=== PATIENT | female | born 1975 | race Caucasian/White ===

== ENCOUNTER 2016-04-21 05:49 | Day surgery (SDC) | payer OTHER ==
[~2016-04-21] VITALS: Ht 168.9 cm; Wt 116.0 kg
[2016-04-21] VITALS (11 sets, daily range): BP systolic 112–140; BP diastolic 69–86; PULSE 75–109; RESP 10–19; O2SAT 95–98
[~2016-04-21 05:49] MED LIST: CHOL500050 PO; EPIN0.3P2 IJ; HYDR-4003 PO; IMI100 PO; Lactated Ringer's 1,000 ML IV ONE; METH750T3 PO; NAPR500T5 PO; OXYB5TAB10 PO; PREG150C PO; PROC10TA PO; TOPI100T32 PO
[2016-04-21] MEDS ORDERED: fentaNYL-PF 50 mCg/mL 2 mL Inj ONE (05:50)
[2016-04-21] MEDS ORDERED: Neostigmine 1 mg/mL 5 mL Inj ONE (05:50)
[2016-04-21] MEDS ORDERED: Glycopyrrolate 0.2 mg/mL 5 mL Inj ONE (05:50)
[2016-04-21] MEDS ORDERED: Ondansetron 2 mg/mL 2 mL Inj ONE (05:50)
[2016-04-21] MEDS ORDERED: Dexamethasone 4 mg/mL Inj ONE (05:50)
[2016-04-21] MEDS ORDERED: Propofol 10,000 mCg/mL 20 mL Inj ONE (05:50)
[2016-04-21] MEDS ORDERED: Rocuronium 10 mg/mL 5 mL Inj ONE (05:50)
--- NOTE | 2016-04-21 06:56 | PCM.HPANE ---
Patient Data Surgeon Admitting Provider: Attending Provider:Jerry Fabian MD Primary Care Physician:Greg Avila MD Other Provider:PoojaocMagdaleno Anesthesia Reason for Visit Right Thyroid Nodule Ht/WT & BMI Height (Feet): 5 Height (Inches): 6.5 Weight (Kilograms): 115.485 Body Mass Index 40.00 Allergies Coded Allergies: cholera vaccine (Verified Allergy, Severe, HIVES, SCREAMING & CRYING, ) typhoid vaccine (Verified Allergy, Severe, HIVES, SCREAMING & CRYING, ) phenytoin (Verified Adverse Reaction, Severe, LAUGHING OR SLEEPING, 04/21/16 ) Uncoded Allergies: Yogurt (Allergy, Unknown, HIVES,THROAT TINGLING,GI UPSET, 04/16/16) Past Anesthesia History Anesthesia History: Denies:: Anesthesia Reactions, Fam Anesthesia Reaction, Fam Malignant Hypertherm, Malignant Hyperthermia Diabetes History Hx Diabetes?: No MRSA MRSA: No Medications Reported Medications Cholecalciferol (Vitamin D3) (Vitamin D)50,000 Unit Pxcpink70,000 Unit PO WEEKLY 04/16/16 Topiramate (Topamax)100 Mg Qpxors464 Mg PO BID Ref 0 03/05/16 Prochlorperazine Maleate (Prochlorperazine)10 Mg Ubhpjq05 Mg PO Q8 PRN For Nausea/Vomiting Ref 0 03/05/16 Oxybutynin Chloride 5 Mg Tablet5 Mg PO BID Ref 0 03/05/16 Naproxen 500 Mg Tablet.dr500 Mg PO BIDWM Ref 0 03/05/16 Methocarbamol 750 Mg Vljzpd255 Mg PO TID PRN PRN Ref 0 03/05/16 Pregabalin (Lyrica)150 Mg Jknygps038 Mg PO BID 30 Days Ref 0 03/05/16 Sumatriptan (Imitrex)100 Mg Viuhhf623 Mg PO DIRECTED PRN Headache 03/05/16 Hydrocodone-Acetaminophen 5-325 mg 1 Each Tablet1 Tablet PO Q6H PRN For Pain Ref 0 03/05/16 Epinephrine (Epipen 2-Jassi)0.3 Mg/0.3 Ml Auto.injct0.3 Mg IJ DIRECTED PRN For Anaphyllaxis 03/05/16 Discontinued Reported Medications Phentermine 30 Mg Fhqncsa23 Mg PO DAILY 1/4/17 Ofloxacin 5 Ml Drops1-2 Drop AFFECT_EYE QID 04/16/16 Ergocalciferol (Vitamin D2) (Drisdol)50,000 Unit Pfmilgc21,000 Unit PO Q7D 03/05/16 History History of ENT Problems?: Yes HEENT History: Denies:: Cataracts (HX OF LT EYE CONJUNCTIVITIS TX W/ ABX DROPS) Other HEENT Pertinent History: S/P TONSILLECTOMY Hx of Heart Problems?: No Cardiovascular History: Denies:: Hypertension Pacemaker Valvular Heart Disease Hx of Respiratory Problem?: Yes Respiratory History: Positive for:: Asthma Denies:: Use of C-PAP Machine Hx Neurologic Problems?: Yes Neurological History: Positive for:: Headaches Seizures (Epilepsy; last grand mal seizure 20 years ago) Hx of GI Problems?: Yes Gastrointestinal History: Positive for:: Gastroesphageal Reflux Hx of Problems?: Yes Female Hx: Denies:: Currently (S/P BTL) Endometriosis Problems with Breasts? Skin History: Positive for:: History Skin Disorders? (ECZEMA) Denies:: Pressure Ulcers Hx Musculoskeletal Problems?: Yes Musculoskeletal History: Positive for:: Degenerative Joint (CERVICAL SPINAL CORD COMPRESSION) Fibromyalgia Osteoarthritis Rheumatoid Arthritis (ACCORDING TO PT-NOT NOTED IN HISTORY) Hx of Psycho/Social Problems?: No Hx Surgeries?: Yes (TONSILLECTOMY,BTL) Hx Any Other Health Problems?: Yes Other History: Denies:: Cancer Endocrine Disease Hospitalization Thyroid Disease (RT NODULE=CURRENT PROBLEM EUTHYROID,SL NECK PRESSURE & VOICE CHANGE) History Blood Transfusions: Denies:: Blood Transfuse Reaction Blood Transfusions Hx Diabetes: No Hx Alcohol Use: NoHx Substance Use: No Smoking Status: Never Smoker Have You Smoked inLast 12 mo: No Stop/Bang S-Snoring: Do You Snore Loudly: No T-Tired: feel tired, fatigued: Yes O-Obsered: Observed not breath: No P-Blood Pressure: treated: No B- Body Mass Index > 35 kg/m2: Yes A- Age over 50: No N- Neck Large Circumference: Yes G- Gender Male: No ABDON Total Score: 3 Risk Assessment Category Category 1A: Patient has history of documented sleep apnea, and HAS NOT received any narcotic, sedative or anesthesia administration during this stay. Category 1B: Patient has history of documented sleep apnea, and HAS received any narcotic , sedative or anesthesia administration during this stay Category 2: Patient has SUSPECTED Obstructive Sleep Apnea, and HAS received any narcotic , sedative or anesthesia administration during this stay. Category 3: Patient has SUSPECTED Obstructive Sleep Apnea and HAS NOT received narcotic, sedative or anesthesia administration during this stay. Category 4: Outpatient in Procedural Areas with known sleep apnea or who screen positive for High Risk via the STOP/BANG questionnaire. Exam Exam General Appearance: Alert, Oriented X3, Cooperative HEENT/AIRWAY: MP 2, Neck Movement (from), Mouth Opening (wnl) Lungs: Clear to Auscultation, Normal Air Movement Heart: Exam Unremarkable Plan Impression Patient chart reviewed, patient interviewed and anesthestic plan with risks, benefits, and alternatives discussed, and informed consent obtained. NPO Status: 03/09/16 ASA Physical Status: ASA3 Severe Disease Anesthetic Plan: GA Bene/Risks/Altern/Consents: Yes HP Complete Prior to Induction: Yes Wilder Greenberg MD Apr 21, 2016 06:56
[2016-04-21] MEDS ORDERED: Lactated Ringer's 1,000 ML IV SCH (07:56)
[2016-04-21] MEDS ORDERED: Lactated Ringer's 500 ML IV PRN (07:56)
[2016-04-21] MEDS ORDERED: EPHEDrine Sulfate 50 mg/mL Inj IVPUSH PRN (08:00)
[2016-04-21] MEDS ORDERED: Atropine 0.4 mg/mL Inj IVPUSH PRN (08:00)
[2016-04-21] MEDS ORDERED: EPHEDrine Sulfate 50 mg/mL Inj IM PRN (08:00)
[2016-04-21] MEDS ORDERED: Labetalol 5 mg/mL 4 mL Inj IV PRN (08:00)
[2016-04-21] MEDS ORDERED: Bupivacaine-MPF 0.5% W/EPI 30 mL Inj INFILTRATE ONE (08:00)
[2016-04-21] MEDS ORDERED: Dexamethasone 4 mg/mL Inj IVPUSH PRN (08:00)
[2016-04-21] MEDS ORDERED: hydrOXYzine Inj 25 MG/1 mL SDV IM PRN (08:00)
[2016-04-21] MEDS ORDERED: Phenylephrine 10,000 mCg/mL Inj IVPUSH PRN (08:00)
[2016-04-21] MEDS ORDERED: Ondansetron 2 mg/mL 2 mL Inj IVPUSH PRN (08:00)
[2016-04-21] MEDS ORDERED: hydrALAZINE 20 mg/mL Inj IVPUSH PRN (08:00)
[2016-04-21] MEDS ORDERED: Lactated Ringer's 1,000 ML IV ONE (09:20)
[2016-04-21] MEDS: fentaNYL-PF 50 mCg/mL 2 mL Inj IVPUSH PRN ×2 (09:47→10:04)
[2016-04-21] MEDS: HYDROmorphone 1 mg/mL Inj IVPUSH PRN ×2 (09:47→10:03)
--- NOTE | 2016-04-21 10:13 | PCM.ANEP1 ---
Post Anesthesia Phase 1 PACU Phase 1 Assessment Vital Signs Vital Signs Date Time Temp Pulse Resp B/P Pulse Ox O2 Delivery O2 Flow Rate FiO2 04/21/16 10:00 75 13 127/75 96 Nasal Cannula 2 04/21/16 09:55 36.5 82 10 130/73 95 Nasal Cannula 2 04/21/16 09:50 95 13 132/79 96 Room Air 04/21/16 09:45 96 15 140/85 97 Room Air 04/21/16 09:40 107 15 135/86 97 Room Air 04/21/16 09:36 36.3 109 14 136/84 96 Room Air 04/21/16 07:08 36.7 89 16 112/72 98 Room Air Anesthetic Administered: GA Level of Alertness: Awake, talking LANDERS's with Equal Strength: Yes Pain: No Nausea or Vomiting: No Oxygen Delivery: Room Air Lungs: Normal Air Movement Wilder Greenberg MD Apr 21, 2016 10:13
[2016-04-21] MEDS: HYDROcodone-APAP 5-325 mg Tablet PO PRN ×2 (10:43→11:20)
--- NOTE | 2016-04-21 12:52 | PCM.ANEP2 ---
Post Anesthesia Evaluation ASA/CMS Post Anesthesia VS in Patient's Normal Range?: Yes Resp Stable; Airway Patent?: Yes CV Function & Hydration Stable: Yes Mental Status Recovered?: Yes Pain control Satisfactory?: Yes N/V Control Satisfactory?: Yes Wilder Greenberg MD Apr 21, 2016 12:51
--- NOTE | 2016-04-21 20:47 | OP ---
[address] [address] OPERATIVE REPORT PATIENT: QAMAR TOLENTINO : 1975 MR#: [id number] ADMIT: 04/21/2016 JOB ID: [id number] DATE OF SURGERY: 04/21/2016 PREOPERATIVE DIAGNOSIS(ES): Right thyroid nodule with indeterminate cytology. POSTOPERATIVE DIAGNOSIS(ES): Right thyroid nodule with indeterminate cytology. PROCEDURE: Right thyroid lobectomy. SURGEON: Jerry Fabian MD. DIGITAL ASSET SPECIALIST: Gilbert Rebolledo MD and Dilcia Chen PA-C. INDICATIONS: The patient is a 40-year-old female who was found incidentally to have a right thyroid nodule that was approximately 3 cm. A fine needle aspirate cytology was done and had indeterminate cytologies and after discussing options with the patient, it was elected to proceed with a right thyroid lobectomy. There is no adenopathy seen on any of her imaging nor could be palpated on her physical examination. After discussing options, she elected to proceed. Her BMI is greater than 40. FINDINGS: The right thyroid nodule was in the mid portion of the lobe. It did not grossly penetrate the anterior or posterior surfaces. There was no invasion of strap muscles. There was no visible or palpable adjacent lymphadenopathy. The left thyroid lobe was not exposed. Parathyroid glands not identified because of obesity. DESCRIPTION OF PROCEDURE: At the beginning and end of the operation, the SCOAP checklist was completed. A general endotracheal anesthetic was induced. Using ChloraPrep, she was prepped and draped in usual fashion. The patient had a preoperative BMI of greater than 40 and tape was used to help put stretch on soft tissues of her neck and her neck was extended as much as possible. A collar incision was designed and infiltrated with 0.5% bupivacaine with epinephrine. After making the skin incision, cautery was used to divide subcutaneous tissues and platysma. The strap muscles were identified, in midline and then the right thyroid lobe was exposed. The plane between the sternohyoid and sternal thyroid muscles was bluntly developed to allow greater relaxation of the strap muscles. The middle thyroid vein was identified, exposed and divided with the LigaSure. The isthmus was then identified and exposed and using triple applications of the thyroid parenchyma, it was divided. The superior pole was then mobilized 1st taking individual vascular pedicles as they entered the thyroid parenchyma. I then mobilized the inferior pole and in both cases worked towards the hilum. I was able to easily mobilize the lobe medially and with careful dissection, exposed hilar vessels and they were divided with the bipolar cautery. As stated above, she had a BMI in excess of 40. She had a lot of fat in her neck. I could palpate a banjo string structure in the location where the recurrent laryngeal nerve should be located, and it went up towards the larynx, but I actually did not visualize it. The lobe mobilized very readily medially but in order to protect the nerve there was a small amount of thyroid left in place and divided with the bipolar cautery or with the LigaSure. After the lobe was completely removed, sutures were placed for margin orientation and it was put into formalin for permanent pathology. There was a small amount of bleeding from the residual thyroid tissue but no other bleeding. The strap muscles were then closed with running 3-0 Vicryl. The platysma with running 3-0 Vicryl. Skin with subcuticular 4-0 Vicryl and Dermabond. Estimated blood loss 10 cc. No apparent complications. The final sponge, needle and instrument counts were announced as correct, and the patient was returned to recovery in stable condition. Critical assistance provided by Gilbert Rebolledo MD. JUDI
--- NOTE | 2016-04-23 16:27 | PATH ---
SURGICAL PATHOLOGY Attending Physician:Alejo Hameed CASE STATUS: Signed Out PATIENT NAME: QAMAR TOLENTINO PID: [id number] : 1975 DATE COLLECTED:04/21/2016 17:14 SPECIMEN: Thyroid, Lobectomy CLINICAL HISTORY: A: RIGHT THYROID, SHORT STITCH SUPERIOR, LONG STITCH MEDIAL RIGHT THYROID NODULE FINAL DIAGNOSIS: 1.RIGHT THYROID LOBECTOMY: ADENOMATOUS (HYPERPLASTIC) NODULE. NO EVIDENCE OF MALIGNANCY. ICD10 CODE E04.1 GROSS DESCRIPTION: The specimen is received in formalin, labeled with the patient's name, sublabeled as right thyroid; short stitch superior, long stitch medial and consists of a thyroid gland right lobe (12.6 g, 1.2 cm AP, 4.7 cm SI, 2.5 cm ML) oriented with 2 black sutures (short-superior, long-medial). The capsule is red-brown smooth and shiny. The parenchyma is red-brown and contains a solid rubbery darker red-brown well-circumscribed nodule (2.3 x 1.8 x 1.5 cm) in the upper half. The nodule is 0.5 cm from the superior and 2.2 cm from the inferior poles. No other nodules, masses or lesions are identified. Ink code: purple-anterior; yellow-posterior; green-medial. Section code: (A) superior pole, perpendicularly sectioned, entirely submitted; (B-G) right lobe, serially sectioned and submitted SI, investment representative; (H) inferior pole, perpendicularly sectioned, entirely submitted. 04/22/16 JM MICRO DESCRIPTION: See diagnosis. ICD-9 CODES: CPT CODES: 1: 09798 Electronically Signed Out Shameka Knight MD [facility] [address], [place] [address] Technical component performed at [facility], [address] [place] [address] Ave[address], [place], [address]
== END 2016-04-21 23:59 | disposition home or self-care (01) ==
LOC: SAS 05:49
PROVIDERS: ATTEND Surgery
DX: D34 Benign neoplasm of thyroid gland (principal); J45.909 Unspecified asthma, uncomplicated; G40.909 Epilepsy, unspecified, not intractable, without status epilepticus; M79.7 Fibromyalgia; E66.9 Obesity, unspecified; G43.909 Migraine, unspecified, not intractable, without status migrainosus; Z68.41 Body mass index [BMI] 40.0-44.9, adult
CPT/HCPCS: 60210; J1100; J1170; J2250; J2405; J2710; J7120

== ENCOUNTER 2016-10-10 08:52 | Inpatient (IN) | payer OTHER ==
--- NOTE | 2016-10-09 14:35 | PCM.HPANE ---
Patient Data Surgeon Admitting Provider: Attending Provider:Tiffanie Wu MD Primary Care Physician:Greg Avila MD Other Provider:Jaclyn Hendricksingham Anesthesia Reason for Visit Benign Neoplasm, Excessive Bleeding In The [place] Ht/WT & BMI Height (Feet): 5 Height (Inches): 6.5 Weight (Kilograms): 112.03 Body Mass Index 39.00 Allergies Coded Allergies: cholera vaccine (Verified Allergy, Severe, HIVES, SCREAMING & CRYING, ) typhoid vaccine (Verified Allergy, Severe, HIVES, SCREAMING & CRYING, ) phenytoin (Verified Adverse Reaction, Severe, LAUGHING OR SLEEPING, 04/21/16 ) Uncoded Allergies: Yogurt (Allergy, Unknown, HIVES,THROAT TINGLING,GI UPSET, 04/16/16) Past Anesthesia History Anesthesia History: Denies:: Abnormal Airway, Anesthesia Reactions, Difficult Intubation, Fam Anesthesia Reaction, Fam Malignant Hypertherm, Malignant Hyperthermia Diabetes History Hx Diabetes?: No MRSA MRSA: No Medications Hypertension Medication: No Home Meds Incl Beta Fitz: No Reported Medications Cholecalciferol (Vitamin D3) (Vitamin D3)50,000 Unit Fytvdbe83,000 Unit PO WEEKLY 10/07/16 Topiramate (Topamax)200 Mg Pndmdm147 Mg PO BID Ref 0 10/07/16 Prochlorperazine Maleate (Prochlorperazine)10 Mg Spxhlk21 Mg PO Q8 PRN For Nausea/Vomiting Ref 0 10/07/16 Pramipexole Dihydrochloride 0.125 Mg Tablet0.125 Mg PO HS 10/07/16 Phentermine 30 Mg Icmrvqr38 Mg PO DAILY 10/07/16 Oxybutynin Chloride 5 Mg Tablet5 Mg PO BID Ref 0 10/07/16 Naproxen 500 Mg Vzc977 Mg PO BID PRN For Pain Ref 0 10/07/16 Methocarbamol 750 Mg Spuiji565 Mg PO TID PRN For Spasm Ref 0 10/07/16 Magnesium 30 Mg Mxbovz87 Mg PO DAILY 10/07/16 Pregabalin (Lyrica)150 Mg Ttvjsnt887 Mg PO TID 30 Days Ref 0 10/07/16 Sumatriptan (Imitrex)100 Mg Jnyhpf152 Mg PO Q2H PRN migraines NTE 200mg/24hr 10/07/16 Hydrocodone-Acetaminophen 5-325 mg 1 Each Tablet1 Tablet PO Q6H PRN For Pain Ref 0 10/07/16 Epinephrine (Epipen 2-Jassi)0.3 Mg/0.3 Ml Auto.injct0.3 Mg IJ PRN For Anaphyllaxis 10/07/16 Discontinued Reported Medications Cholecalciferol (Vitamin D3) (Vitamin D)50,000 Unit Oxuohra91,000 Unit PO WEEKLY 04/16/16 Topiramate (Topamax)100 Mg Oenpna693 Mg PO BID Ref 0 03/05/16 Prochlorperazine Maleate (Prochlorperazine)10 Mg Sghmaf33 Mg PO Q8 PRN For Nausea/Vomiting Ref 0 03/05/16 Oxybutynin Chloride 5 Mg Tablet5 Mg PO BID Ref 0 03/05/16 Naproxen 500 Mg Tablet.dr500 Mg PO BIDWM Ref 0 03/05/16 Methocarbamol 750 Mg Wdqwrt485 Mg PO TID PRN PRN Ref 0 03/05/16 Pregabalin (Lyrica)150 Mg Zivjklt298 Mg PO BID 30 Days Ref 0 03/05/16 Sumatriptan (Imitrex)100 Mg Dlcfmd774 Mg PO DIRECTED PRN Headache 03/05/16 Hydrocodone-Acetaminophen 5-325 mg 1 Each Tablet1 Tablet PO Q6H PRN For Pain Ref 0 03/05/16 Epinephrine (Epipen 2-Jassi)0.3 Mg/0.3 Ml Auto.injct0.3 Mg IJ DIRECTED PRN For Anaphyllaxis 03/05/16 History History of ENT Problems?: Yes HEENT History: Denies:: Abnormal Airway Cataracts Difficult Intubation Dysphagia Glaucoma Hearing Problem Sinus Problem TMJ Denture Type: None Teeth Condition: Within Normal Limits Hx of Heart Problems?: No Cardiovascular History: Positive for:: Irregular Heartbeat (only during ) Denies:: AICD Edema Heart Murmur Hypertension Pacemaker Peripheral Vascular Valvular Heart Disease Hx of Respiratory Problem?: No Respiratory History: Denies:: Asthma (as child, exercise induced- not current ) COPD Emphysema Oxygen Administration Pneumonia Tuberculosis Use of C-PAP Machine (sleep study done, no CPAP recommended) Hx Neurologic Problems?: Yes Neurological History: Positive for:: Headaches (every few weeks) Seizures (Epilepsy; last grand mal seizure 20 years ago- last aura 3 years ago ) Denies:: CVA Dizziness Multiple Sclerosis Parkinson's Disease Other Neurological Pertinent: restless leg syndromes Hx of GI Problems?: Yes Hx of Problems?: No Genitourinary History: Denies:: Urinary Tract Infection Female Hx: Denies:: Currently (S/P TUBAL) Endometriosis Problems with Breasts? Skin History: Denies:: History Skin Disorders? Pressure Ulcers Hx Musculoskeletal Problems?: Yes Musculoskeletal History: Positive for:: Degenerative Joint (CERVICAL SPINAL CORD COMPRESSION) Fibromyalgia Osteoarthritis (knees ) Denies:: Joint Replacement Myasthenia Gravis Systemic Lupus Hx of Psycho/Social Problems?: No Hx Surgeries?: Yes (TONSILLECTOMY,BTL, thyroid) Hx Any Other Health Problems?: Yes Other History: Positive for:: Thyroid Disease (right thyroid lobectomy 04/2016) Denies:: Cancer Endocrine Disease Hospitalization History Blood Transfusions: Positive for:: Accept Blood Products? Denies:: Blood Transfuse Reaction Blood Transfusions Hx Diabetes: No Hx Alcohol Use: NoHx Substance Use: No Smoking Status: Never Smoker Have You Smoked inLast 12 mo: No Stop/Bang S-Snoring: Do You Snore Loudly: No T-Tired: feel tired, fatigued: Yes O-Obsered: Observed not breath: No P-Blood Pressure: treated: No B- Body Mass Index > 35 kg/m2: Yes A- Age over 50: No N- Neck Large Circumference: No G- Gender Male: No ABDON Total Score: 2 Risk Assessment Category Category 1A: Patient has history of documented sleep apnea, and HAS NOT received any narcotic, sedative or anesthesia administration during this stay. Category 1B: Patient has history of documented sleep apnea, and HAS received any narcotic , sedative or anesthesia administration during this stay Category 2: Patient has SUSPECTED Obstructive Sleep Apnea, and HAS received any narcotic , sedative or anesthesia administration during this stay. Category 3: Patient has SUSPECTED Obstructive Sleep Apnea and HAS NOT received narcotic, sedative or anesthesia administration during this stay. Category 4: Outpatient in Procedural Areas with known sleep apnea or who screen positive for High Risk via the STOP/BANG questionnaire. Exam Exam General Appearance: Alert, Oriented X3, Cooperative HEENT/AIRWAY: MP 2, Neck Movement (thick, from), Mouth Opening (wnl) Lungs: Clear to Auscultation Heart: Exam Unremarkable Plan Impression Patient chart reviewed, patient interviewed and anesthestic plan with risks, benefits, and alternatives discussed, and informed consent obtained. ASA Physical Status: ASA2 Mod Systemic Disease Anesthetic Plan: GA Bene/Risks/Altern/Consents: Yes HP Complete Prior to Induction: Yes Wilder Greenberg MD Oct 09, 2016 14:35
[2016-10-10] VITALS (16 sets, daily range): BP systolic 106–144; BP diastolic 65–92; PULSE 52–85; RESP 9–27; O2SAT 97–100
[~2016-10-10] VITALS: Ht 170.2 cm; Wt 116.0 kg
[2016-10-10] MEDS: CeFAZolin Inj 2 GM in IV Premix 1 EACH IV SCH ×2 (06:00→11:47)
[~2016-10-10 08:52] MED LIST changes: +LORazepam 1 mg Tablet PO PRN; -Lactated Ringer's 1,000 ML IV ONE; +Lactated Ringer's 1,000 ML IV SCH; +MAGN30TA3 PO; -NAPR500T5 PO; +NPR500T PO; +PHEN-499 PO; +PRAM0.128 PO; -TOPI100T32 PO; +TOPI200T17 PO; +fentaNYL-PF 50 mCg/mL 2 mL Inj IVPUSH PRN
[2016-10-10] MEDS ORDERED: CeFAZolin 2 Gm/50 mL D5W Duplex Bag IV ONE (09:12)
[2016-10-10 09:57] LABS: Mean Corpuscular Hemoglobin 28.5 pg (27.0-35.0); Mean Corpuscular Volume 87.9 fL (81-100)
[2016-10-10] MEDS ORDERED: Lactated Ringer's 1,000 ML IV ONE ×3 (11:29→17:17)
[2016-10-10] MEDS ORDERED: Lactated Ringer's 500 ML IV PRN (11:50)
[2016-10-10] MEDS ORDERED: hydrOXYzine Inj 50 MG/1 mL SDV IM PRN (11:50)
[2016-10-10] MEDS ORDERED: Atropine 0.4 mg/mL Inj IVPUSH PRN (11:50)
[2016-10-10] MEDS ORDERED: Dexamethasone 4 mg/mL Inj IVPUSH PRN (11:50)
[2016-10-10] MEDS ORDERED: EPHEDrine Sulfate 50 mg/mL Inj IM PRN (11:50)
[2016-10-10] MEDS ORDERED: Phenylephrine 10,000 mCg/mL Inj IVPUSH PRN (11:50)
[2016-10-10] MEDS ORDERED: Ondansetron 2 mg/mL 2 mL Inj IVPUSH PRN ×2 (11:50→15:00)
[2016-10-10] MEDS ORDERED: EPHEDrine Sulfate 50 mg/mL Inj IVPUSH PRN (11:50)
[2016-10-10] MEDS ORDERED: Labetalol 5 mg/mL 4 mL Inj IV PRN (11:50)
[2016-10-10] MEDS ORDERED: hydrALAZINE 20 mg/mL Inj IVPUSH PRN (11:50)
[2016-10-10] MEDS ORDERED: Bupivacaine-MPF 0.5% W/EPI 30 mL Inj INJ ONE (11:53)
[2016-10-10] MEDS ORDERED: Acetaminophen IV 1,000 MG in IV Premix 1 EACH IV ONE (12:00)
[2016-10-10] MEDS ORDERED: Tranexamic Acid Inj 1,000 MG in 0.9% Sodium Chloride 100 ML IV ONE (13:15)
[2016-10-10] MEDS ORDERED: Tranexamic Acid 100 mg/mL 10 mL Inj ONE (13:20)
[2016-10-10] MEDS: Lactated Ringer's 1,000 ML IV SCH ×4 (14:50→22:57)
[2016-10-10] MEDS ORDERED: Senna-Docusate 8.6-50 mg Tablet PO PRN (15:00)
[2016-10-10] MEDS ORDERED: Acetaminophen IV 1,000 MG in IV Premix 1 EACH IV PRN (15:00)
[2016-10-10] MEDS ORDERED: Alum-Mag Hydrox-Simeth 30 mL Suspension PO PRN (15:00)
[2016-10-10] MEDS ORDERED: MetoCLOpramide 5 mg/mL 2 mL Inj IVPUSH PRN (15:00)
[2016-10-10] MEDS ORDERED: HYDROmorphone PCA 0.2 mg/mL 30 mL Inj IV PRN (15:05)
[2016-10-10] MEDS ORDERED: HYDROmorphone 0.5 mg/0.5 mL iSecure Syringe IVPUSH PRN (15:05)
--- NOTE | 2016-10-10 15:33 | PCM.ANEP1 ---
Post Anesthesia PACU Phase 1 Assessment Vital Signs Vital Signs Date Time Temp Pulse Resp B/P Pulse Ox O2 Delivery O2 Flow Rate FiO2 10/10/16 15:30 75 15 139/87 100 Simple Mask 8 10/10/16 15:25 76 21 134/85 100 Simple Mask 8 10/10/16 15:21 36.0 76 23 133/84 100 Simple Mask 8 10/10/16 09:21 36.4 85 16 116/76 99 Room Air Anesthetic Administered: GA Level of Alertness: Sleeping, hard to arouse LANDERS's with Equal Strength: Yes Pain: Yes Nausea or Vomiting: No CV Function & Hydration Stable: No Airway Device: Oxygen Delivery: Simple Mask Lungs: Normal Air Movement PACU Phase 2 Assessment Complications: No Follow up Care: No Patient Instructions Provided: N/A Wilder Greenberg MD Oct 10, 2016 15:33
[2016-10-10] MEDS: fentaNYL-PF 50 mCg/mL 2 mL Inj IVPUSH PRN ×4 (15:50→16:32)
[2016-10-10] MEDS: HYDROmorphone 1 mg/mL Inj IVPUSH PRN ×2 (15:50→17:08)
--- NOTE | 2016-10-10 16:11 | OP ---
[address] [address] OPERATIVE REPORT PATIENT: QAMAR TOLENTINO : 1975 MR#: [id number] ADMIT: 10/10/2016 JOB ID: [id number] DATE OF SURGERY: 10/10/2016 PREOPERATIVE DIAGNOSIS(ES): Dysmenorrhea and dermoid cyst. POSTOPERATIVE DIAGNOSIS(ES): Dysmenorrhea and dermoid cyst. PROCEDURE PERFORMED: Total laparoscopic hysterectomy with bilateral salpingectomy and left oophorectomy with conversion to laparotomy for completion of an abdominal hysterectomy, cystoscopy. SURGEON: Tiffanie Wu M.D. AOC DIRECTOR INTELLIGENCE OFFICER: Idalmis Morales M.D. and Kina Allen M.D., who were necessary for safe completion and assistance in a difficult case. ANESTHESIA: General endotracheal anesthesia. ESTIMATED BLOOD LOSS: 1100 cc. FLUID REPLACEMENT: 3000 cc of crystalloid and she was given tranexamic acid intraoperatively. FINDINGS: At 10 week size uterus. Bilateral enlarged ovaries with a left dermoid cyst. Normal-appearing fallopian tubes with Filshie clips present. Large amount of bleeding and oozing mostly coming from the anterior vaginal cuff and bladder, but diffusely oozy throughout the case. COMPLICATIONS: Heavy bleeding precluding completion of a total laparoscopic hysterectomy and requiring conversion to laparotomy for safe completion. INDICATIONS: This is a 40-year-old female who presented to my clinic for an evaluation of a dermoid cyst and dysmenorrhea. She had initially elected to continue conservative management through a repeat transvaginal ultrasound. She finally decided she was ready to be done with this and wanted definitive surgical management. Risks of cyst removal versus oophorectomy were discussed and she also wanted treatment for her heavy vaginal bleeding so medical management versus surgical management was reviewed and she elected to proceed with a total laparoscopic hysterectomy and bilateral salpingectomy and left oophorectomy. Risks, benefits and alternatives were discussed with her prior to the procedure. She elected to proceed. DESCRIPTION OF PROCEDURE: The patient was taken to the operating room. She was placed in the dorsal lithotomy position. Prepped and draped in the usual sterile fashion for the procedure. A bivalve speculum was placed and the uterus was sounded to 10 cm and a medium-sized V Care uterine manipulator was placed without difficulty. A Simon catheter was also placed. Attention was then turned laparoscopically. After injection with local anesthetic, a 5 mm infraumbilical port was placed in the site of her previous infraumbilical port placement for her tubal ligation. A Veress needle was then inserted through the midline of the umbilicus and a saline drop test noted appropriate placement. The abdomen was then insufflated with appropriately rising CO2 pressures. The laparoscope was then placed under direct visualization and an intra-abdominal placement was confirmed. Next, attention was turned to the right lower quadrant where a second 5 mm port was placed after injection with local anesthetic. Under direct visualization, the same process was completed on the left under direct visualization. The patient was placed in Trendelenburg position and the uterus was examined. It was noted to be 10 week size with bilateral normal-appearing fallopian tubes with Filshie clips present and enlarged ovaries bilaterally with the left side having the 2.5 cm dermoid cyst. The left ovary and fallopian tube were then elevated away from the sidewall. The ureter was identified and noted to be well away from the area of operation and the left IP ligament was then cauterized and transected. This was carried along the broad ligament back to the uterine cornua transecting the ovary and fallopian tube off of the broad ligament. The round ligament was then grasped and cauterized and then transected. The anterior and posterior sheaths of the broad ligament were and the anterior sheath of the broad ligament was brought down to the isthmus. A bladder flap was then created by bringing the cautery across the top of the anterior leaf of the bladder and the uterine vessels were skeletonized and then cauterized. With the creation of the bladder flap, she was noted to have a moderate amount of bleeding coming from the anterior bladder wall as well as back bleeding from the ovary and transected broad ligament which was serially cauterized. Attention was then turned to the right side where the right fallopian tube was elevated and transected along the mesosalpinx to the level of the uterine cornua. The fallopian tube was cauterized along the mesosalpinx up to the level of the cornua and the utero-ovarian ligament was then transected followed by the round ligament. The anterior and posterior leaves of the broad ligament were then using the cautery. Anterior and posterior sheaths were brought down to the level of the isthmus and the level of the uterine arteries. These were then cauterized. However, at this point in time, she was noted continuing to have a moderate amount of bleeding coming from the left side of the surgery site. Despite 45 minutes of suction, irrigation and cauterization, we were not able to get control of the bleeding or even definitively see where it was coming from. She seemed to be oozing from her entire surgical line and also had some bleeding along the right side as well. To aid in visualization of the bleeding, a fourth port was placed in the right upper quadrant to aid with suction irrigation, and despite this, she continued to have heavy bleeding that appeared to be coming from the lower uterine segment, anterior wall of the bladder and back bleeding from the uterus. We continued to work towards hemostasis but when she had lost approximately a liter of blood and we were continuing to have bleeding, a decision was made to convert to a laparotomy to better control her bleeding and for the patient's safety. An intraoperative hemoglobin was collected which was 10.2, down from 11.8, pre surgery and our anesthesiologist gave her tranexamic acid intraoperatively to also help with hemostasis. When the decision was made to convert to a laparotomy, all of the laparoscopic ports were removed. A Pfannenstiel incision was then made over along the lower abdomen. This was brought down sharply to the level of the rectus fascia and cautery was used to achieve hemostasis. The fascia was then incised in the midline. It was sharply dissected off of the rectus muscle. Blunt and sharp dissection was further used as well to help remove the fascia from the underlying rectus muscle. The peritoneum was then entered bluntly and this entrance was extended bluntly bilaterally. A Bookwalter retractor was then placed and the bowel was packed away from the uterus. Two Star clamps were used to grasp the bilateral cornua and elevate the uterus up from the abdomen. The VCare uterine manipulator was also removed. Visualization then revealed that she continued to have bleeding from her anterior bladder wall. Two Z clamps were then placed along the cardinal ligament bilaterally. These were then incised with scissors and suture ligated with a Adele stitch of 0-Vicryl. This process was repeated twice down the cardinal ligament until the vaginal cuff was then reached. Two moderately curved hysterectomy clamps were then placed below the cervix across the vaginal cuff meeting in the middle, and using Aydee scissors, the uterus, cervix and left ovary and fallopian tube were then excised from the vaginal cuff and removed from the abdomen. The vaginal cuff was then closed with 0-Vicryl with three vxvxfl-ls-gvvej stitches in the midline and two Adele stitches at each corner. These were tagged to allow for elevation of the vaginal cuff. Examination of the vaginal cuff and vesicouterine peritoneum was examined and there was noted to be an area of active bleeding coming from the bladder wall. Cauterization was not successful in achieving hemostasis so a stitch of 0 Vicryl was placed in order to achieve hemostasis. There was also noted to be some bleeding from the right corner of the vaginal cuff and an extra bzdycd-li-crwos stitch was placed here as well. The pelvis was copiously irrigated and packed with sponges. These were removed and she was noted to have a minimal amount of oozing and so FloSeal was then placed on top of the vaginal cuff and good hemostasis was noted following this. When she was noted to be hemodynamically stable and hemostasis was assured throughout the surgical site lines, the lap sponges that had been placed were then removed from the abdomen and the retractors were removed. The fascia was then closed with two running nonlocking stitches of 0-Vicryl starting in each corner and meeting in the midline. The subcutaneous tissue was reapproximated using plain gut suture and the skin was closed with 4-0 Vicryl. All sponge, needle, instrument counts were correct at the completion the procedure. She tolerated this procedure well. Recovered in PACU. Dr. Morales and Dr. Allen were necessary for safe completion of this case. Dr. Allen was called mid portion of the procedure due to the volume of intraoperative bleeding that she was experiencing. [facility]
--- NOTE | 2016-10-10 17:30 | NUR ---
POstop Pt comes from PACu A&OX4. IV X 2 in each hand. 2L NC supplemental oxygen. Simon catheter patent and draining to gravity pale yellow urine. 4 lap sites with SS and bandaids. Midline low abd inc covered with ABD and hypafix tape. Care continues. Pain 6/10. Care continues
[2016-10-10] MEDS ORDERED: Ondansetron 2 mg/mL 2 mL Inj ONE (18:03)
[2016-10-10] MEDS ORDERED: Neostigmine 1 mg/mL 10 mL Inj ONE (18:03)
[2016-10-10] MEDS ORDERED: fentaNYL-PF 50 mCg/mL 2 mL Inj ONE (18:03)
[2016-10-10] MEDS ORDERED: Glycopyrrolate 0.2 MG/ML 1mL Inj ONE (18:03)
[2016-10-10] MEDS ORDERED: Propofol 10,000 mCg/mL 20 mL Inj ONE (18:03)
[2016-10-10] MEDS ORDERED: HYDROmorphone 1 mg/mL Inj ONE (18:03)
[2016-10-10] MEDS ORDERED: Dexamethasone 4 mg/mL Inj ONE (18:03)
[2016-10-10] MEDS ORDERED: Rocuronium 10 mg/mL 5 mL Inj ONE (18:03)
[2016-10-10 19:49] LABS: Mean Corpuscular Hemoglobin 28.8 pg (27.0-35.0); Mean Corpuscular Volume 88.6 fL (81-100)
[2016-10-10] MEDS: Senna-Docusate 8.6-50 mg Tablet PO SCH (20:54)
[2016-10-10] MEDS: Ondansetron 2 mg/mL 2 mL Inj IVPUSH PRN (21:05)
[2016-10-11 00:45] VITALS: RESP 16; O2SAT 98
[2016-10-11] MEDS: Ondansetron 2 mg/mL 2 mL Inj IVPUSH PRN ×2 (01:33→03:28)
--- NOTE | 2016-10-11 01:43 | NUR ---
Pain/Nausea/ mentation C/O pain on KNITTED [employer] SHAPER dilaudid 0.2X10X1.2. IV Tylenol patient states pain continues but not getting worse. C/O nausea given 4mg Zofran nausea improved but required additional dose within 4 hours. Patient speech delayed and slurred, drifts off mid sentence. Expression exhaustion and desire to "get a good nights sleep." Patient education on pain management, proper use of KNITTED GOODS SHAPER. Bed in low position, call llight within reach, intentional rounding.
[2016-10-11] MEDS: Lactated Ringer's 1,000 ML IV SCH ×3 (03:20→22:57)
[2016-10-11 05:30] VITALS: BP 108/72; PULSE 95; RESP 16; O2SAT 95
[2016-10-11 06:43] LABS: BASOPHILS % (AUTO) 0.1 % (0-3); EOSINOPHILS % (AUTO) 0.1 % (0-5); Mean Corpuscular Hemoglobin 28.8 pg (27.0-35.0); Mean Corpuscular Volume 89.5 fL (81-100); NEUTROPHILS % (AUTO) 82.5 % (40-74); Platelet Count 174 bil/L (150-400)
[2016-10-11 08:00] VITALS: RESP 16; O2SAT 100
[2016-10-11] MEDS: Tolterodine ER 2 mg ER24 Capsule PO SCH (08:31)
[2016-10-11] MEDS: Senna-Docusate 8.6-50 mg Tablet PO SCH ×2 (08:32→21:00)
[2016-10-11] MEDS: oxyCODONE-Acetamin 5-325 mg Tablet PO PRN ×4 (08:33→20:59)
[2016-10-11 13:33] VITALS: BP 113/76; PULSE 100; RESP 18; O2SAT 100
--- NOTE | 2016-10-11 13:44 | PROG NOTE ---
[address] [address] PROGRESS NOTE PATIENT: QAMAR TOLENTINO : 1975 MR#: [id number] ADMIT: 10/10/2016 JOB ID: [id number] DATE: 10/11/2016 SUBJECTIVE: She is doing okay this morning. She is feeling fatigued and tired. She has not yet been out of bed or ambulated. She is complaining of back pain as well as lower abdominal pain and cramping. She is tolerating a little bit of a regular diet. She is not passing any flatus yet. She was on a Dilaudid MARBLE SUPERVISOR, but this was discontinued due to nausea and she is now on Percocet and IV Tylenol, which is moderately helpful in improving her pain. She denies any fevers, chills, chest pain, or shortness of breath. OBJECTIVE: Her temperature is 36.4, pulse is 95. Her respiratory rate is 16. Her blood pressure is 108/72 and she is satting 95% on room air. In general, she is awake, alert, oriented, in no acute distress. Her heart shows regular rate and rhythm. Her lungs are clear to auscultation bilaterally. Her abdomen is soft. It is appropriately tender. Minimal distention. She has normoactive bowel sounds and her incisions are clean, dry, intact, with a little bit of ecchymoses surrounding the left cornua of her Pfannenstiel incision. Her extremities show no tenderness or edema. She does have SCDs in place. LAB DATA: This morning, her white count is 12.2, up from 5.0 preoperatively. Her hemoglobin is 9.3, down from 11.8 preoperatively and her platelets are 174. ASSESSMENT: This is a 40-year-old female, who is postop day one following attempted total laparoscopic hysterectomy with bilateral salpingectomy and left oophorectomy for a dermoid cyst and dysmenorrhea with conversion to laparotomy with completion of an abdominal hysterectomy due to heavy intraoperative bleeding with approximate EBL of 1100 cc. PLAN: At this point in time, she is doing well. Her hemoglobin is stable. She dropped from 11.8 preoperatively down to 9.3 on postoperative day number one and is overall very reassuring in terms of the amount of blood loss that occurred. She has not yet been out of bed and she continues to have a Simon catheter in place. She is complaining of pain and nausea related to the MARBLE SUPERVISOR. The MARBLE SUPERVISOR was discontinued this morning. Will transition her to oral pain medications. She will be saline locked when tolerating more of a regular diet. Her Simon catheter will be removed and we will ambulate in the room today. Her urine output has been adequate overnight. She has had 500 cc out in her Simon catheter this morning already. We will continue routine postoperative care. Anticipate discharge home tomorrow or Thursday.
--- NOTE | 2016-10-11 17:13 | NUR ---
Pain / AMbulation / Simon Simon catheter removed this AM. Pt spontaneously voiding small amounts pale yellow urine. Pain seems controlled with 2 tabs Percocet Q4-5hrs. Pt up to chair and ambulating with slow cautious steady gait to bathroom. Care continues
[2016-10-11 20:41] VITALS: BP 129/76; PULSE 114; RESP 20; O2SAT 99
[2016-10-12] MEDS: oxyCODONE-Acetamin 5-325 mg Tablet PO PRN ×6 (01:37→22:15)
[2016-10-12 05:12] VITALS: BP 132/80; PULSE 111; RESP 17; O2SAT 100
--- NOTE | 2016-10-12 06:55 | NUR ---
Pain 2 Percocet PO effective every 4 hours. Pt. rates pain 8/10 at times. Will continue to monitor.
[2016-10-12] MEDS: Lactated Ringer's 1,000 ML IV SCH ×3 (06:57→22:57)
[2016-10-12 08:25] VITALS: BP 112/79; PULSE 113; RESP 18; O2SAT 98
[2016-10-12] MEDS ORDERED: Ergocalciferol (Vit D2) 50,000 Unit Capsule PO SCH (08:30)
[2016-10-12] MEDS: Tolterodine ER 2 mg ER24 Capsule PO SCH (08:49)
[2016-10-12] MEDS: Senna-Docusate 8.6-50 mg Tablet PO SCH ×2 (08:50→21:22)
--- NOTE | 2016-10-12 09:32 | PCM.DIGYN ---
Surgical Discharge Instruction Dates of Hospitalization Date of Hospital Admission Oct 10, 2016 at 18:02 Providers Admitting Physician: Tiffanie Wu MD Primary Care Physician: Greg Avila MD Attending Physician: Tiffanie Wu MD Diet Discharge Diet: No restrictions Activity Discharge Activity-General: Try not to overdue, Be up and about, Balance rest and activity, Activity as pain allows, Activity as energy allows, No lifting > 10 pounds for 4-6 weeks, No driving while taking narcotic Dressing and Incisional Care Dressing Care: Keep dressing clean, dry & intact Hygiene: May shower, NO bathtub, hot tub or whirlpool Follow Up Plan Follow-up appointment: Weeks (2) Call your provider for: Fever, Chills, Shortness of breath, Vomitting, Drainage at incision, Heavy vaginal bleeding, Wound redness, Increasing pain Tiffanie Wu MD Oct 12, 2016 09:32
[2016-10-12] MEDS ORDERED: DOCU-41 PO (09:33)
[2016-10-12 10:02] LABS: BASOPHILS % (AUTO) 0.3 % (0-3); EOSINOPHILS % (AUTO) 0.9 % (0-5); MONOCYTES % (AUTO) 11.4 % (4-12); Mean Corpuscular Hemoglobin 28.7 pg (27.0-35.0); Mean Corpuscular Volume 89.6 fL (81-100); NEUTROPHILS % (AUTO) 60.1 % (40-74); Platelet Count 185 bil/L (150-400)
--- NOTE | 2016-10-12 10:57 | NUR ---
Social Work: Screening/Readiness for Discharge D: EMR reviewed. Pt is a 40 y/o female admitted for benign neoplasm and excessive bleeding per H&P. Pt's insurance is [employer]. Pt's NOK is spouse, Kim Beasley ([phone]). Pt lives at home with her spouse in [place]. Per EMR, pt had Simon removed 10/11 and was transferred from PEDIATRIC NEPHROLOGIST to oral pain medications. Per AM multi-disciplinary rounds, pt's pain has decreased and pt has been up ambulating in room independently. Per MD, pt is medically stable and ready for discharge. SW has screened pt's EMR and worked with medical team in AM multi-disciplinary rounds to determine pt does not have any SW discharge needs at this time. SW does not anticipate any needs at time of discharge but will continue to follow if needs arise. A: Pt who is independent at baseline P: Pt likely to discharge home today via POV. LETTY has screened pt's EMR and worked with medical team in AM multi-disciplinary rounds to determine pt does not have any SW discharge needs at this time. SW does not anticipate any needs at time of discharge but will continue to follow if needs arise. PATY Armando
[2016-10-12 13:57] VITALS: BP 94/69; PULSE 122; RESP 18; O2SAT 100
[2016-10-12 14:37] VITALS: BP 130/87; PULSE 125; O2SAT 99
--- NOTE | 2016-10-12 15:19 | NUR ---
HR Tacky H/H slowly decreasing over last few days postop. MD aware. BP appears to be dropping at times as well. HR trending faster over last few days as well up to 125 today. MD paged and aware. EKG ordered, 500ml Bolus ordered. Will continue to monitor and encourage PO fluids.
[2016-10-12] MEDS ORDERED: 0.9% Sodium Chloride 500 ML IV ONE (15:20)
[2016-10-12 17:23] VITALS: BP 107/70; PULSE 107; RESP 18; O2SAT 100
[2016-10-12 18:15] VITALS: PULSE 105
--- NOTE | 2016-10-12 18:19 | NUR ---
Cancel DC for now MD aware of H/H, BPs, and HRs. Per MD no H/H labs needed for morning. Go ahead and cancel DC for tonight so that we can monitor HR through the night. MD will reassess in morning. Care continues Pt and family aware.
--- NOTE | 2016-10-12 23:01 | PROG NOTE ---
[address] [address] PROGRESS NOTE PATIENT: QAMRA TOLENTINO : 1975 MR#: [id number] ADMIT: 10/10/2016 JOB ID: [id number] DATE: 10/12/2016 SUBJECTIVE: She is doing better this morning. Her pain is moderately well controlled with oral pain medications. Her Simon catheter was removed yesterday and she is voiding well on her own. She is also ambulating independently in her room. She is not passing any flatus yet. She was tolerating a soft and clear liquid diet without any nausea or vomiting. She does feel fatigued. She denies any chest pain or shortness of breath. She denies any vaginal bleeding. OBJECTIVE: She is afebrile. Her vital signs are stable with the exception of tachycardia. Her pulse was in the 1-teens. In general, she is awake, alert, oriented. She is in no acute distress. Her heart shows tachycardia. Her lungs are clear to auscultation bilaterally. Her abdomen is soft. It is appropriately tender. It is nondistended with normoactive bowel sounds. Her incisions are clean, dry and intact, without erythema or induration. LABORATORY DATA: Her hemoglobin is stable at 8.8 this morning, down from 9.3 24 hours ago. ASSESSMENT: This is a 40-year-old female who is postop day two following a planned total laparoscopic hysterectomy with left salpingo-oophorectomy and right salpingectomy with cystoscopy with conversion to laparotomy and completion of a total abdominal hysterectomy due to bleeding obscuring completion of the case. PLAN: She is clinically improving. She is stable at this time. However, she is now tachycardic. She is asymptomatic from this. However, this needs to be further monitored. Her hemoglobin is stable at this point in time and she is not hypotensive. I have low suspicion for any further bleeding. She appears hemodynamically stable. I plan to get an EKG this afternoon and give her an IV fluid bolus. She will be monitored overnight and hopefully will be stable for discharge by postoperative day three.
[2016-10-13] MEDS: oxyCODONE-Acetamin 5-325 mg Tablet PO PRN ×3 (04:08→12:56)
--- NOTE | 2016-10-13 04:12 | NUR ---
Pain/Belching On initial assessment, patient stated pain 6/10 on pain scale. Pain medication due at 2230. Patient ambulated around hallway before bed. Patient states that she is belching frequently. VSS. Call light within reach. Care continues.
[2016-10-13] MEDS: Lactated Ringer's 1,000 ML IV SCH ×2 (06:44→14:57)
[2016-10-13 07:21] VITALS: BP 138/86; PULSE 108; RESP 20; O2SAT 97
--- NOTE | 2016-10-13 08:40 | DIS ---
[address] [address] DISCHARGE SUMMARY PATIENT: QAMAR TOLENTINO : 1975 MR#: [id number] ADMIT: 10/10/2016 JOB ID: [id number] DIS: DATE OF ADMISSION: 10/10/2016 DATE OF DISCHARGE: 10/13/2016 ADMISSION DIAGNOSES: 1. Left dermoid cyst. 2. Dysmenorrhea. DISCHARGE DIAGNOSES: 1. Left dermoid cyst. 2. Dysmenorrhea. PROCEDURES PERFORMED: Attempted total laparoscopic hysterectomy with bilateral salpingectomy and left oophorectomy with conversion to laparotomy and completion of a total abdominal hysterectomy due to bleeding with cystoscopy. REASON FOR ADMISSION: This is a 40-year-old female, who presented to our clinic complaining of a left dermoid cyst and dysmenorrhea. She initially opted for expectant management with serial transvaginal ultrasounds, however after several months of this decided that she desired to proceed with definitive surgical management. Additionally she was complaining of dysmenorrhea and treatment options for this were reviewed as well. She opted to proceed with a total laparoscopic hysterectomy, left salpingo-oophorectomy, and right salpingectomy for treatment as well as cystoscopy. Risks, benefits, and alternatives were discussed with her. She elected to proceed and was admitted on the for the above-stated procedure. HOSPITAL COURSE: The patient was admitted on the . She underwent the above-stated procedure. The surgeries complicated by heavy intraabdominal bleeding requiring conversion to laparotomy for successful completion of the case. Please see the operative report for full details regarding this. She was then admitted and did very well postoperatively. Her hemoglobin was trended and was noted to have stabilized at 8.8, down from 11.8 preoperatively with decrease in 0.5 g hemoglobin in 24 hours from postoperative day #1 to postoperative day #2. By postoperative day #1 she had some nauseated which was related to Dilaudid EXAM PROCTOR. This was transitioned to oral pain medication and her Simon catheter was discontinued. By postoperative day #2 she was voiding and ambulating well on her own. The pain continued to be well controlled. Initially it was thought that she would be stable for discharge on this day, however she had some worsening tachycardia with a heart rate up into the 120s of unknown origin and EKG showed sinus tachycardia and her heart rate improved with administration of IV fluids. By postoperative day #3 she was tolerating a regular diet, voiding and ambulating well on her own. Her pain was well controlled and her heart rate had improved back down to the low 100s from a high of upper 120s. She was having minimal vaginal bleeding and was passing flatus. It was at this point in time that she was deemed stable for discharge. PHYSICAL EXAMINATION ON THE DAY OF DISCHARGE: On the day of discharge her temperature was 36.8, her heart rate is between 105-108 down from 122 the day previously, respiratory rate is 20, blood pressure is 138/86, and she is satting 97% on room air. In general, she is awake, alert, oriented, no acute distress. Her heart shows regular rate and rhythm. Her lungs are clear to auscultation bilaterally. Her abdomen is soft. It is appropriately tender and nondistended. She has normoactive bowel sounds. Her incisions are clean, dry, and intact. Her extremities show trace lower extremity edema. LABORATORY DATA: Shows preoperatively a white count of 5.0, hemoglobin 11.8, platelets of 178. By postoperative day #2 they stabilized, her white count was down to 6.7, her hemoglobin had dropped down to 8.8 had been at 10.2 intra op and 10.6 on the evening of postoperative day zero, 9.3 on postoperative day #1 and 8.8 on postoperative day #2. Her platelets by postop day #2 were 185. ASSESSMENT: This is a 40-year-old female, postoperative day #3 following attempted total laparoscopic hysterectomy that was converted to an abdominal hysterectomy with left salpingo-oophorectomy and right salpingectomy with cystoscopy for a dermoid cyst and dysmenorrhea. PLAN: She is making good progress postoperatively. She is currently meeting all of her postoperative goals. She was kept until postoperative day #3 to monitor her tachycardia which is improving, and she is otherwise asymptomatic and feeling well. At this point in time, I do believe she is stable for discharge. I am not concerned about bleeding and her blood pressure is stable. Warning signs for the postoperative period were reviewed with her as well. INSTRUCTIONS AT DISCHARGE: The patient was advised to remain on pelvic rest for six weeks including no tampons, douching, or intercourse. She was asked to call with any signs or symptoms of infection including fever greater than 100.5 degrees, severe pain, malodorous vaginal discharge or bleeding more than a pad per hour. She was also asked to call with any chest pain, palpitations, shortness of breath, or worsening dizziness. DISCHARGE MEDICATIONS: Include Percocet 5/325 1-2 tabs p.o. q.4 hours p.r.n. pain as well as ibuprofen 800 mg p.o. q.8 hours p.r.n. pain. Her home medications were restarted as well. Her naproxen and her Vicodin which she had prior to her procedure were discontinued. All questions and concerns of the patient were answered. She was deemed stable for discharge on postoperative day #3.
[2016-10-13] MEDS: Tolterodine ER 2 mg ER24 Capsule PO SCH (08:52)
[2016-10-13] MEDS: Senna-Docusate 8.6-50 mg Tablet PO SCH (08:53)
[2016-10-13 13:24] VITALS: BP 127/87; PULSE 111; RESP 18; O2SAT 99
--- NOTE | 2016-10-13 16:02 | NUR ---
Discharge Orders for discharge were received. The patient was made aware of the plan for discharge and was agreeable to go. The patient was given information regarding her diagnosis and treatment, signs and symptoms to be aware of, follow up instructions, scripts and information for new medications and surgical site incision care. The patient signified understanding of this information, verified using the teach back method. The patient's asymptomatic IV was then removed intact and her belongings gathered. The patient dressed in her own clothing and ambulated into a wheelchair which took her to the main entrance where she entered a private family vehicle. At the time of discharge the patient was alert and oriented, denying out of control pain or nausea, vital signs stable and surgical incision sites within defined standards.
[2016-10-15 08:29] VITALS: BP 101/67; PULSE 74; RESP 18; O2SAT 96
--- NOTE | 2016-10-15 16:39 | PATH ---
SURGICAL PATHOLOGY Attending Physician:Tiffanie Wu, CASE STATUS: Signed Out PATIENT NAME: QAMAR TOLENTINO PID: [id number] : 1975 DATE COLLECTED:10/10/2016 00:00 SPECIMEN: 1: Fallopian Tube, Biopsy 2: Uterus +/- tubes/ovaries, except neoplastic, prolapse CLINICAL HISTORY: ABNORMAL UTERINE BLEEDING AND DERMOID CYST 1). RIGHT FALLOPIAN TUBE 2). UTERUS, LEFT FALLOPIAN TUBE AND LEFT OVARY FINAL DIAGNOSIS: 1.RIGHT FALLOPIAN TUBE: NO SIGNIFICANT PATHOLOGIC CHANGE. 2.UTERUS WITH LEFT FALLOPIAN TUBE AND LEFT OVARY: BENIGN CYSTIC TERATOMA, LEFT OVARY (DERMOID CYST). PROLIFERATIVE ENDOMETRIUM, NEGATIVE FOR ATYPIA. MULTIPLE BENIGN FOLLICULAR CYSTS, LEFT OVARY. FALLOPIAN TUBE UNREMARKABLE (FILSHIE CLIP PRESENT). ICD10 N83.29 GROSS DESCRIPTION: The specimens are received in formalin, labeled with the patient's name, and sublabeled as the following: (1) right fallopian tube; (2) uterus, left fallopian tube, left ovary. (1) The specimen consists of a fimbriated fallopian tube (length-6.7 cm, diameter-0.8 cm) received in 2 pieces. The serosa is agosto-purple smooth and shiny. The lumen is villar and unremarkable. No nodules, masses or lesions are identified. Section code: (1A) fallopian tube, serially sectioned, route service representative; (1B) fimbria, bivalved, entirely submitted. (2) The consists of a uterus (166 g, 5.3 cm AP, 11.2 cm SI, 5.3 cm ML) with an attached left ovarian cyst (4.5 x 3.6 x 3.1) and left fimbriated fallopian tube (length-5.8 cm, diameter-0.8 cm). The right ovary and fallopian tube are absent. The cervix (2.5 cm AP, 3.2 cm ML) has a vaginal cuff (up to 1.3 cm thick), transverse os and patent endocervical canal. The endometrium (average thickness-0.1 cm) is villar-pink smooth and flat. The myometrium (thickness-2.2 cm) is villar-pink and unremarkable. The serosa is villar smooth and shiny. The ovarian cyst has barrios-purple smooth flat serosa. The contents consist of pale yellow waxy material mixed with strands of hair. The lining is flat and smooth with no excrescences identified. A scant amount of normal ovarian parenchyma is identified. The fallopian tube contains a Filshie clip and has dark purple serosa with focal pallor mid-segment. The lumen is villar and unremarkable. Section code: (2A-2B) anterior cervix, bisected and submitted SI; (2C-2D) posterior cervix, bisected and submitted SI; (2E, 2F) anterior endomyometrium; (2G, 2H) posterior endomyometrium; (2I) ovarian cyst, serially sectioned, route service representative; (2J) fallopian tube, serially sectioned, route service representative; (2K) right fimbria, bivalved, entirely submitted. 10/11/16 TAINA Additional sections: (2L-2O) ovarian cyst, route service representative. 10/14/16 MICRO DESCRIPTION: See diagnosis. ICD-9 CODES: CPT CODES: 1: 00427 2: 91762 Electronically Signed Out Johny Jovel MD [facility] [address], [place] [address] Technical component performed at [facility], [address] [place] [address] [address], [place], [address]
== END 2016-10-13 15:55 | disposition home or self-care (01) | DRG 742 ==
LOC: SAS 08:52 → OSC 18:02
PROVIDERS: ADMIT Obstetrics & Gynecology; ATTEND Obstetrics & Gynecology
PROC: 0UJD4ZZ Inspection of Uterus and Cervix, Percutaneous Endoscopic Approach (ICD-10-PCS; 2016-10-10)
PROC: 0UT10ZZ Resection of Left Ovary, Open Approach (ICD-10-PCS; 2016-10-10)
PROC: 0UT60ZZ Resection of Left Fallopian Tube, Open Approach (ICD-10-PCS; 2016-10-10)
PROC: 0UT54ZZ Resection of Right Fallopian Tube, Percutaneous Endoscopic Approach (ICD-10-PCS; 2016-10-10)
PROC: 0UTC0ZZ Resection of Cervix, Open Approach (ICD-10-PCS; 2016-10-10)
PROC: 0UT90ZZ Resection of Uterus, Open Approach (ICD-10-PCS; principal; 2016-10-10 10:45)
DX: D27.1 Benign neoplasm of left ovary (principal); N99.61 Intraoperative hemorrhage and hematoma of a genitourinary system organ or structure complicating a genitourinary system procedure; N94.6 Dysmenorrhea, unspecified; Z53.31 Laparoscopic surgical procedure converted to open procedure